=== PATIENT | female | born 1960 | race Caucasian/White ===

== ENCOUNTER 2019-02-10 21:38 | Emergency (ER) | payer BC ==
--- OUTSIDE RECORDS SUMMARY | 2019-02-10 21:55 | XMS REPORT | Continuity of Care Document ---
:1960 External Reference #:[id number] Author Name Jackelyn Hartman M.D. Address [address] [place] [address] Care Team Providers Name Role Phone Jackelyn Hartman - Family Medicine Care Team Information Diving Instructor Dimas Ruby - Obstetrics & Care Team Information Diving Instructor [phone] Gynecology Sherry Christy MD - Obstetrics & Care Team Information Diving Instructor Gynecology Problems Active Problems Provider Date Overweight Jackelyn Hartman M.D. Onset: 02/22/2014 Conduction disorder of the heart Jackelyn Hartman M.D. Onset: 02/22/2014 Idiopathic scoliosis AND/OR kyphoscoliosis Jackelyn Hartman M.D. Onset: 06/2013 Obstructive sleep apnea syndrome Jackelyn Hartman M.D. Onset: 03/05/2017 Social History Type Date Description Comments Sex Unknown Tobacco Use Start: Unknown Never Smoked Cigarettes Smoking Status Reviewed: 01/03/19 Never Smoked Cigarettes ETOH Use Social Alcohol once a month - beer. 2-3 at a setting. Tobacco Use Start: Unknown Patient has never smoked Allergies, Adverse Reactions, Alerts Active Allergies Reaction Severity Comments Date Amoxil,Trimox 09/18/2014 Medications Active Medications SIG Qnty Indications Ordering Provider Date Atenolol Take One Tablet 90tabs I49.8 Hammad Lance 08/23/2007 25mg Tablets By Mouth Once MD Christine Daily Immunizations CPT Code Status Date Vaccine Lot # [id number] Given 12/20/2017 [facility] Influenza vac quadrivalent preservative free 6 mths and up 31937 Given 12/24/2015 Tdap Tetanus, W Pertussis [id number] Given 12/05/2015 Influenza Vac, Quadriv[place], [place] [address] Given 12/29/2014 Influenza Vac, Quadriv[place] [address] Given 01/18/2013 DO Not Use Split Influenza Virus Vaccine 27549 Given 01/18/2012 DO Not Use Split Influenza Virus Vaccine 25825 Given 01/14/2011 DO Not Use Split Influenza Virus Vaccine Vital Signs Date Vital Result Comment 01/03/2019 2:27pm BP Systolic 128 mmHg BP Diastolic 84 mmHg Heart Rate 68 /min Body Temperature 98.1 F Respiratory Rate 16 /min Height 63 inches 5'3" Weight 212.00 lb BMI (Body Mass Index) 37.6 kg/m2 10/14/2018 2:52pm BP Systolic 130 mmHg BP Diastolic 80 mmHg Heart Rate 84 /min Body Temperature 98.4 F Respiratory Rate 16 /min Height 63 inches 5'3" Weight 209.00 lb BMI (Body Mass Index) 37.0 kg/m2 Results Test Date Facility Test Result H/L Range Note Laboratory test finding 11/11/2018 [facility] [place] Cytology SEE RESULT BELOW 1 1 SEE RESULT BELOW Name: JUDITH WOODS : [address]: Sherry Christy MD Acct: [id number] Unit: [id number] AGE: 58 Location: [facility] Re11/11/18 SEX: F Status: REG REF SPEC: [id number] PAUL[place]: 11/11/18-133 [facility] DR: Sherry Christy MD REQ: [id number] RECD: 11/11/18 STATUS: CURTIS ALMENDAREZ DR: Jackelyn Hartman MD _ ORDERED: TP IMAGE ANALYS, HPV/Thin Prep COMMENTS: [id number] Negative for Intraepithelial lesion or Malignancy Date Time Test Result Flag (u) Normal Range 11/11/18 133 HPV BRAYAN Negative Negative The high-risk HPV types detected by the assay include: 16, 18, 31, 33, 35, 39, 45, 51, 52, 56, 58, 59, 66, and 68. A. Ectocervical/Endocervical Specimen Adequacy: Satisfactory of evaluation Transformation zone component identified Patient Information: HPV: High risk HPV RNA testing regardless of pap results. Actual Specimen Date: 11/11/18 LMP If Unknown: 2016 Date of Last Specimen: 06/25/14 Signed by and Reported on: RADHA Claudio (ASCP) 113 This Pap test was evaluated with the assistance of the [employer] Test Imaging System. Due to cytologic findings at the rug sample beveler microscope, comprehensive manual rescreening by a Maintenance Operator may be required. The Pap Smear is a screening test designed to aid in the detection of premalignant and malignant conditions of the uterine cervix. It is not a diagnostic procedure and should not be used as the sole means of detecting cervical cancer. Both false- positive and false- negative reports do occur. Depending on your risk status, a Pap smear should be obtained and evaluated every 1-3 years. END OF REPORT DEPARTMENT OF PATHOLOGY, [address] [place] [address] Lukas Yates M.D. Director [facility] # [id number] Procedures Date Code Description Status 11/22/2018 [id number] Mammogram Completed 01/24/2016 [id number] Mammogram Completed 08/27/2014 [id number] Colonoscopy Completed 07/05/2014 [id number] Mammogram Completed 10/07/2007 [id number] Mammogram Completed Medical Devices Description No Information Available Encounters Type Date Location Provider Dx Diagnosis Office Visit 10/14/2018 [facility] Office Margot Mckinnon R47.89 Other speech 2:45p CARLIE Jones disturbances J30.2 Other seasonal allergic rhinitis Assessments Date Code Description Provider 01/03/2019 Z00.00 Encounter for general adult medical Jackelyn Hartman M.D. examination without abnormal findings 01/03/2019 E66.3 Overweight Jackelyn Hartman M.D. 01/03/2019 I49.8 Other specified cardiac arrhythmias Jackelyn Hartman M.D. 01/03/2019 G47.33 Obstructive sleep apnea (adult) (pediatric) Jackelyn Hartman M.D. 01/03/2019 Z23 Encounter for immunization Jackelyn Hartman M.D. 10/14/2018 R47.89 Other speech disturbances Margot Jones NP 10/14/2018 J30.2 Other seasonal allergic rhinitis Margot Jones NP Plan of Treatment 01/03/2019 - Jackelyn Hartman M.D.Z00.00 Encounter for general adult medical examination without abnormal findingsNew Labs:CBC Electronic (Fma), Ordered: CCC-Comp+Lipid (Fma), Ordered: 01/03/19TSH ([facility]ma/[facility]), Ordered: Comments:You are in good general health. I recommend regular physical exams with attention to good nutritionand exercise, eye exams every other year, and dental exams twice yearly. Goals:2 fresh fruits guiot1yhgjculu of fresh green and multicolored vegetablesEat from the whole color spectrum. 40-60 [place] dailyMOVE YOUR BODY. Bodies were made to be moved. exercise 30 minutes at least 4-5 times enqjpoA75.3 OverweightComments:Take a 3 day food log. Write down everything you eat and bring it in.Follow up:6 weeks. go over blood work and food log.I49.8 Other specified cardiac yyqbticrilwY77.33 Obstructive sleep apnea (adult) (pediatric)Comments:refer back to sleep medicine.Z23 Encounter for immunizationImmunizations/Injections:Influenza Vac, Quadrivalent, Split 6- 35monAllComments:Medication Management Patient Understands medications she's taking? Yes No Are there Barriers to Adherence? Yes No Has the patient been asked about herbal supplements and therapies, and OTC meds? Yes No Functional Status Description No Information Available Mental Status Description No Information Available Referrals Description No Information Available
--- NOTE | 2019-02-11 00:07 | ED ---
Palpitations / Dysrhythmia - HPI Summary HPI Summary: Patient complains of episodes of palpitations 1 week with sudden onset sensation of irregular rhythm and nausea today after eating [place] food. Patient states history of episodes of palpitations, but states they have been more frequent and lasting longer recently. Denies fever, cough, sore throat, CP , SOB, N/V/D, abdominal pain, change in urine, change in BM. 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 Takes atenolol 10 mg at night for episodes of tachycardia. No history of irregular. Medical history is tachycardia. - History of Current Complaint Chief Complaint: EDDysrhythmPalp Time Seen by Provider: 02/11/19 00:05 Hx Obtained From: Patient Onset/Duration: Sudden Onset Severity Initially: Moderate Severity Currently: Moderate Character: Fast, Irregular Aggravating: Other Alleviating: Nothing Associated Signs & Symptoms: Negative - Allergy/Home Medications Allergies/Adverse Reactions: Allergies Allergy/AdvReac Type Severity Reaction Status Date / Time amoxicillin Allergy Rash Verified 02/10/19 21:48 Penicillins Allergy Rash Verified 02/10/19 21:47 PMH/Surg Hx/FS Hx/Imm Hx Endocrine/Hematology History: Denies: Hx Anticoagulant Therapy Cardiovascular History: Denies: Hx Angina, Hx Coronary Artery Disease, Hx Hypercholesterolemia, Hx Hypertension, Hx Myocardial Infarction, Hx Valvular Heart Disease Respiratory History: Denies: Hx Asthma, Hx Chronic Obstructive Pulmonary Disease (COPD) History: Reports: Hx Dialysis Sensory History: Denies: Hx Eye Prosthesis Opthamlomology History: Denies: Hx Legally Blind EENT History: Denies: Hx Deafness Neurological History: Denies: Hx Dementia Infectious Disease History: No Infectious Disease History: Denies: Traveled Outside the [place] in Last 30 Days - Family History Known Family History: Positive: Non-Contributory - Social History Alcohol Use: Occasionally Substance Use Type: Reports: None Smoking Status (MU): Never Smoked Tobacco Review of Systems Constitutional: Negative Eyes: Negative ENT: Negative Positive: Palpitations Respiratory: Negative Positive: Nausea Genitourinary: Negative Musculoskeletal: Negative Skin: Negative Neurological: Negative Psychological: Normal All Other Systems Reviewed And Are Negative: Yes Physical Exam Triage Information Reviewed: Yes Vital Signs On Initial Exam: Initial Vitals Temp Pulse Resp BP Pulse Ox 97.3 F 120 16 151/88 100 02/10/19 21:40 02/10/19 21:40 02/10/19 21:40 02/10/19 21:40 02/10/19 21:40 Vital Signs Reviewed: Yes Appearance: Positive: Well-Appearing Skin: Positive: Warm Head/Face: Positive: Normal Head/Face Inspection Eyes: Positive: Normal Neck: Positive: Supple Respiratory/Lung Sounds: Positive: Clear to Auscultation Cardiovascular: Positive: Normal Abdomen Description: Positive: Nontender Musculoskeletal: Positive: Normal Neurological: Positive: Normal Psychiatric: Positive: Normal AVPU Assessment: Alert - [place] Coma Scale Best Eye Response: 4 - Spontaneous Best Motor Response: 6 - Obeys Commands Best Verbal Response: 5 - Oriented Coma Scale Total: 15 Procedures - Sedation Patient Received Moderate/Deep Sedation with Procedure: No Diagnostics - Vital Signs Vital Signs Temp Pulse Resp BP Pulse Ox 02/10/19 21:40 97.3 F 120 16 151/88 100 - Laboratory Result Diagrams: 02/11/19 00:33 02/11/19 00:33 Lab Statement: Any lab studies that have been ordered have been reviewed, and results considered in the medical decision making process. Course/Dx - Course Course Of Treatment: Patient complains of episodes of palpitations 1 week with sudden onset sensation of irregular rhythm and nausea today after eating [place] food. Patient states history of episodes of palpitations, but states they have been more frequent and lasting longer recently. Denies fever, cough, sore throat, CP, SOB, N/V/D, abdominal pain, change in urine, change in BM. 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 Takes atenolol 10 mg at night for episodes of tachycardia. No history of irregular. Medical history is tachycardia. Patient persistently tachycardic in the 120s and 140 range. Vital signs otherwise within normal limits. Labs unremarkable. EKG sinus tachycardia, heart rate of 120, same as prior. Possible UTI. UA. Patient has no symptoms. Cultures pending. Patient advised to follow-up with her manager sql Dr. Corea for evaluation of tachycardia. - Diagnoses Provider Diagnoses: Nausea, Tachycardia Discharge ED - Sign-Out/Discharge Documenting (check all that apply): Patient Departure - Discharge Plan Condition: Stable Disposition: HOME Prescriptions: Ondansetron ODT TAB* [Zofran 4 MG Odt TAB*] 4 mg PO Q8H PRN 4 Days #14 tab.odt PRN Reason: Nausea Patient Education Materials: Acute Nausea and Vomiting (ED), Tachycardia (ED) Referrals: Jackelyn Hartman MD [Primary Care Provider] - Additional Instructions: Follow-up with your manager sql Dr. Corea on Wednesday morning for further evaluation of tachycardia. Return to the ED for any new or worsening symptoms. - Billing Disposition and Condition Condition: STABLE Disposition: Home
[2019-02-11 00:38] LABS: ABS Eosinophils 0.1 10^3/ul (0-0.6); ABS Lymphocytes 2.2 10^3/ul (1.0-4.8); ABS Monocytes 0.6 10^3/ul (0-0.8); ABS Neutrophils 7.7 10^3/ul (1.5-7.7); Eosinophil % 0.7 %; Hematocrit 45 % (35-47); Hemoglobin 15.1 g/dL (12.0-16.0); Lymphocyte % 20.4 %; Mean Corpuscular HGB Conc 34 g/dL (31-36); Mean Corpuscular Hemoglobin 29 pg (27-31); Mean Corpuscular Volume 85 fL (80-97); Mean Platelet Volume 8.5 fL (7.4-10.4); Nucleated Red Blood Cells % 0.1; Platelet Count 187 10^3/uL (150-450); Red Blood Count 5.26 10^6 /uL (3.70-4.87); Red Cell Distribution Width 14 % (10-15); White Blood Count 10.6 10^3/uL (3.5-10.8)
[2019-02-11] MEDS ORDERED: Atenolol TAB* 25 MG PO ONE (00:48)
[2019-02-11 01:02] LABS: Albumin 4.6 g/dL (3.2-5.2); Calcium 9.5 mg/dL (8.6-10.3); Potassium 3.6 mmol/L (3.5-5.0); Total Bilirubin 0.4 mg/dL (0.2-1.0)
[2019-02-11 01:08] LABS: Albumin/Globulin Ratio 1.5 (1-3); BUN/Creatinine Ratio 16.1 (8-20); C Reactive Protein 6.24 mg/L (<8.01); EGFR African American 81.5 (>60); EGFR Non-African American 67.4 (>60); Globulin 3.1 g/dL (2-4); Total Protein 7.7 g/dL (6.4-8.9)
[2019-02-11 01:15] LABS: Urine Appearance Clear; Urine Bilirubin Negative (Negative); Urine Blood 1+ (Negative); Urine Color Yellow; Urine Glucose Negative (Negative); Urine Ketones Negative (Negative); Urine Nitrite Negative (Negative); Urine Protein Negative (Negative); Urine Specific Gravity 1.011 (1.010-1.030); Urine Urobilinogen Negative (Negative)
[2019-02-11 01:17] LABS: Urine Bacteria 1+ (Absent); Urine Red Blood Cell 1+(3-5/hpf) (Absent); Urine Squamous Epithelial Cell Present (Absent); Urine White Blood Cell 2+(11-20/hpf) (Absent)
[2019-02-11 02:08] LABS: TSH (Thyroid Stimulating Horm) 1.62 mcIU/mL (0.34-5.60)
[2019-02-11] MEDS ORDERED: Ondansetron ODT TAB* 4 MG PO ONE (02:13)
[2019-02-11 02:39] VITALS: BP 135/99
== END 2019-02-11 02:31 | disposition home or self-care (01) ==
LOC: ED 21:38
DX: R00.0 Tachycardia, unspecified (principal); R11.0 Nausea; Z88.0 Allergy status to penicillin
CPT/HCPCS: 36415; 80053; 81003; 81015; 83735; 84443; 84484; 85025; 86140; 87086; 93005; 99283; A9270-GY